=== PATIENT | female | born 1985 | race Caucasian/White ===

== ENCOUNTER 2020-12-04 18:16 | Emergency (ER) | payer MEDICAID ==
[~2020-12-04] VITALS: Ht 157.5 cm; Wt 56.7 kg
--- NOTE | 2020-12-04 19:01 | NUR ---
BIBS FOR "BLSTERS" NOTED IN HER SACRO-ANAL AREA SINCE 2 DAYS AGO. RATES PAIN 6/10. WILL CONTINUE TO MONITOR THE PATIENT.
[2020-12-04] MEDS ORDERED: IBUP-1955 PO (20:48)
[2020-12-04] MEDS ORDERED: ACYC-108 PO (20:48)
[2020-12-04] MEDS ORDERED: DIPH25CA83 PO (20:48)
[2020-12-04 21:14] VITALS: BP 128/88
--- NOTE | 2020-12-04 21:14 | NUR ---
Patient discharged to home in stable condition. Written and verbal after care instructions given. Patient verbalizes understanding of instruction.
[2020-12-12 02:07] LABS: *HSV 2 DNA PCR Negative (Negative)
== END 2020-12-04 21:19 | disposition home or self-care (01) ==
LOC: ER 18:50
DX: B02.9 Zoster without complications (principal); Z60.2 Problems related to living alone; Z79.899 Other long term (current) drug therapy
CPT/HCPCS: 36415

== ENCOUNTER 2021-04-11 00:50 | Emergency (ER) | payer MEDICAID ==
[~2021-04-11] VITALS: Ht 157.5 cm; Wt 56.7 kg
[~2021-04-11 00:50] MED LIST: ACYC-108 PO; DIPH25CA83 PO; IBUP-1955 PO
--- NOTE | 2021-04-11 00:57 | NUR ---
CALLED TO TRIAGE, NOT IN WAITING ROOM.
--- NOTE | 2021-04-11 02:09 | NUR ---
PT BIBSELF C/O MIDEPIGASTRIC PAIN THAT IS WORSE WHEN LAYING DOWN AFTER DINNER. PT AAOX4 BREATHING EVENLY AND UNLABORED. PT ATTACHED TO MONITOR AND POX. PT CHANGED INTO GOWN AND GIVEN BLANKET AND CALL LIGHT WITHIN REACH.
[2021-04-11] MEDS ORDERED: MAG HYDROX/AL HYDROX/SIMETH 30 ML UDC ONE (02:20)
[2021-04-11] MEDS ORDERED: LIDOCAINE VISCOUS 2% UD 15 ML UDC ONE (02:20)
--- NOTE | 2021-04-11 02:29 | NUR ---
US AT BEDSIDE
[2021-04-11] MEDS ORDERED: MAG HYDROX/AL HYDROX/SIMETH 30 ML UDC PO ONE (02:30)
[2021-04-11] MEDS ORDERED: LIDOCAINE VISCOUS 2% UD 15 ML UDC MM ONE (02:30)
--- NOTE | 2021-04-11 02:31 | NUR ---
URINE SENT TO LAB
--- NOTE | 2021-04-11 02:53 | NUR ---
LAB AT BEDSIDE
[2021-04-11 02:59] LABS: BILIRUBIN,URINE NEGATIVE (NEGATIVE); COLOR,URINE YELLOW (YELLOW); LEUKOCYTE ESTERASE ,URINE SMALL (NEGATIVE); NITRITE, URINE NEGATIVE (NEGATIVE); PROTEIN,URINE 30 mg/dl (NEGATIVE); UGLUCOSE NEGATIVE (NEGATIVE); UROBILINOGEN,URINE 0.2 EU/dL (0.2)
[2021-04-11 03:09] LABS: BASOPHILS % (AUTO) 0.4 % (0.0-2.0); EOSINOPHILS % (AUTO) 3.5 % (0.0-6.0); HEMATOCRIT 40 % (33-45); HEMOGLOBIN 13.4 g/dL (11.5-14.8); LYMPHOCYTES # (AUTO) 2.4 K/uL (0.8-4.8); LYMPHOCYTES % (AUTO) 34.7 % (20.0-44.0); MEAN CORPUSCULAR HGB CONC 34 g/dl (31.0-36.0); MEAN CORPUSCULAR VOLUME 88 fL (82-100); MONOCYTES # (AUTO) 0.5 K/uL (0.1-1.30); MONOCYTES % (AUTO) 6.8 % (2.0-12.0); NEUTROPHILS # (AUTO) 3.8 K/uL (1.8-8.9); NEUTROPHILS % (AUTO) 54.6 % (43.0-81.0); PLATELET COUNT (AUTO) 260 K/uL (150-450); RED BLOOD CELL COUNT(AUTO) 4.54 MIL/uL (4.0-5.2); WHITE BLOOD COUNT (AUTO) 6.9 K/uL (4.3-11.0)
[2021-04-11 03:25] LABS: CALCIUM, SERUM 8.7 mg/dL (8.5-10.1); CREATININE 0.8 mg/dL (0.6-1.3); POTASSIUM 3.3 mmol/L (3.5-5.1)
[2021-04-11 03:31] LABS: ALBUMIN 3.8 g/dL (3.4-5.0); BILIRUBIN,DIRECT 0.2 mg/dL (0.0-0.2); BILIRUBIN,TOTAL 0.8 mg/dL (0.2-1.0); TOTAL PROTEIN, SERUM 7.2 g/dL (6.4-8.2)
--- NOTE | 2021-04-11 03:40 | NUR ---
CALLED LAB TO F/U ON HCG TEST, PER LAB, NEGATIVE
--- NOTE | 2021-04-11 03:41 | NUR ---
TAKEN TO RADIOLOGY
[2021-04-11 03:46] LABS: BACTERIA,URINE Moderate /HPF (None Seen); RBC,URINE 0-2 /HPF (0-2); WBC,URINE 21-50 /HPF (0-3)
[2021-04-11 03:47] LABS: SQUAMOUS EPITHELIAL CELL,UR Few /HPF (None Seen)
--- NOTE | 2021-04-11 04:25 | NUR ---
CALLED [facility] TO HAVE IMAGES READ
[2021-04-11] MEDS ORDERED: NITR100C6 PO (05:27)
[2021-04-11] MEDS ORDERED: NITROFURANTOIN/MONOHYDRATE MACROCRYSTALS 100 MG CAPSULE PO ONE (05:30)
[2021-04-11] MEDS ORDERED: NITROFURANTOIN/MONOHYDRATE MACROCRYSTALS 100 MG CAPSULE ONE (05:41)
--- NOTE | 2021-04-11 07:23 | NUR ---
GAVE REPORT TO OSBALDO MOYA FOR [facility]LETCHER
[2021-04-11 07:31] VITALS: BP 127/74
--- NOTE | 2021-04-11 07:31 | NUR ---
Patient discharged to home in stable condition. Written and verbal after care instructions given. Patient verbalizes understanding of instruction.
== END 2021-04-11 07:31 | disposition home or self-care (01) ==
LOC: ER 00:51
DX: N39.0 Urinary tract infection, site not specified (principal); R10.13 Epigastric pain; Z79.1 Long term (current) use of non-steroidal anti-inflammatories (NSAID); Z79.899 Other long term (current) drug therapy; Z60.2 Problems related to living alone
CPT/HCPCS: 36415; 76705-TC; 80048-TC; 80076-TC; 81001; 83690-TC; 84703-TC; 85025-TC; 85730-TC; 87086-TC